=== PATIENT | female | born 1990 | race Caucasian/White ===

== ENCOUNTER 2018-04-14 12:42 | Emergency (ER) | payer SELFPAY ==
[~2018-04-14] VITALS: Ht 165.1 cm; Wt 57.2 kg
[~2018-04-14 12:42] MED LIST: NITR100C62 PO; PHEN100T82 PO
[2018-04-14] MEDS: DEXAMETHASONE 4 MG TABLET PO ONE (14:08)
[2018-04-14] MEDS: IBUPROFEN 600 MG TABLET. PO ONE (14:08)
--- NOTE | 2018-04-14 14:18 | PHYS DOC ---
Past Medical History Past Medical History: Anxiety, Depression, Endometriosis, GERD Past Surgical History: Other Additional Past Surgical Histo: LAPROSCOPY, ADENOIDS, "BILAT URETAL IMPLANT" Additional Information: 0.25 PPD Alcohol Use: None Drug Use: None Adult General Chief Complaint Chief Complaint: GENERALIZED BODY ACHES [facility] HPI Patient is a 28 year old female who presents with has had nausea, vomiting, headache, sinus congestion, cough, bilateral ear pain, back pain for the last 7 days. Patient states 4 days ago she went to urgent care and they told her that she has a upper respiratory viral infection and to take Sudafed and told her to take some MiraLAX for constipation. Patient states that she has MiraLAX at home because she does have chronic constipation but she does not like taking it. Patient states she took 2 doses with the Sudafed and then stopped because she thought that it would make her no staff here. Patient denies coughing up any sputum. Patient states she has chills but does not think that she has been running a fever patient denies any diarrhea. Patient denies any urinary symptoms. Review of Systems Review of Systems Constitutional: Denies fever or chills. Body aches [] Eyes: Denies change in visual acuity, redness, or eye pain [] HENT: Nasal congestion. Denies sore throat [] Respiratory: Cough. Denies shortness of breath [] Cardiovascular: No additional information not addressed in HPI [] GI: Abdominal pain, nausea, vomiting. Denies bloody stools or diarrhea [] : Denies dysuria or hematuria [] Musculoskeletal: Upper back pain. Denies joint pain [] Integument: Denies rash or skin lesions [] Neurologic: Denies headache, focal weakness or sensory changes [] Endocrine: Denies polyuria or polydipsia [] All other systems were reviewed and found to be within normal limits, except as documented in this note. Current Medications Current Medications Current Medications Medications (Trade) Dose Ordered Sig/Ventura Start Time Stop Time Status Last Admin Dose Admin Dexamethasone (Decadron) 8 mg 1X ONCE 04/14/18 13:45 04/14/18 13:51 DC 04/14/18 14:08 8 MG Ibuprofen (Motrin) 600 mg 1X ONCE 04/14/18 13:45 04/14/18 13:51 DC 04/14/18 14:08 600 MG Allergies Allergies Allergies Coded Allergies Type Severity Reaction Last Updated Verified orange (food color) Allergy Intermediate 03/29/16 Yes Physical Exam Physical Exam Constitutional: Well developed, well nourished, no acute distress, non-toxic appearance. [] HENT: Normocephalic, atraumatic, bilateral external ears normal, oropharynx moist, no oral exudates, nose normal. [] Eyes: PERRLA, EOMI, conjunctiva normal, no discharge. [] Neck: Normal range of motion, no tenderness, supple, no stridor. [] Cardiovascular:Heart rate regular rhythm, no murmur [] Lungs & Thorax: Bilateral breath sounds clear to auscultation [] Abdomen: Bowel sounds normal, soft, no tenderness, no masses, no pulsatile masses. [] Skin: Warm, dry, no erythema, no rash. [] Back: slight tenderness in upper backl, no CVA tenderness. [] Extremities: No tenderness, no cyanosis, no clubbing, ROM intact, no edema. [] Neurologic: Alert and oriented X 3, normal motor function, normal sensory function, no focal deficits noted. [] Psychologic: Affect normal, judgement normal, mood normal. [] Current Patient Data Vital Signs Vital Signs Date Time Temp Pulse Resp B/P (MAP) Pulse Ox O2 Delivery O2 Flow Rate FiO2 04/14/18 15:35 76 16 114/57 (76) 100 Room Air 04/14/18 12:44 98.0 98.0 Lab Values Laboratory Tests Test 04/14/18 14:26 04/14/18 14:32 Urine Collection Type Unknown Urine Color Yellow Urine Clarity Clear Urine pH 6.5 Urine Specific [place] 1.020 Urine Protein Negative mg/dL (NEG-TRACE) Urine Glucose (UA) Negative mg/dL (NEG) Urine Ketones (Stick) Trace mg/dL (NEG) Urine Blood Negative (NEG) Urine Nitrite Negative (NEG) Urine Bilirubin Negative (NEG) Urine Urobilinogen Dipstick 1.0 mg/dL (0.2 mg/dL) Urine Leukocyte Esterase Negative (NEG) Urine RBC 1-2 /HPF (0-2) Urine WBC 1-4 /HPF (0-4) Urine Squamous Epithelial Cells Mod /LPF Urine Bacteria Moderate /HPF (0-FEW) Urine Mucus Marked /LPF POC Urine HCG, Qualitative Hcg negative (Negative) Microbiology 04/14/18 Urine Culture - Final, Complete 04/14/18 Urine Culture Result 1 (TANYA) - Final, Complete EKG EKG [] Radiology/Procedures Radiology/Procedures [] Impressions: [facility] [address] [place] [address] IMAGING REPORT Signed PATIENT: YOHAN HEARD ACCOUNT: [id number] : 1990 LOCATION: ER AGE: 28 SEX: F EXAM STATUS: REG ER ORD. PHYSICIAN: PARTH LAUREN APRN REASON: cough PROCEDURE: CHEST PA & LATERAL PA and lateral chest radiograph. History: Cough, congestion. Comparison: None. Findings: Cardiomediastinal silhouette is within normal limits for size. Bilateral lung horn appear clear without evidence of infiltrate, effusion, or pneumothorax. Impression: 1. No acute cardiopulmonary process. Electronically signed by: Hans Monroy MD (04/14/2018 3:05 PM) [place] [id number] DICTATED and SIGNED BY: HANS MONROY MD DATE: 04/14/18 1504 Course & Med Decision Making Course & Med Decision Making Patient is a 28 year old female who presents with has had nausea, vomiting, headache, sinus congestion, cough, bilateral ear pain, back pain for the last 7 days. Patient states 4 days ago she went to urgent care and they told her that she has a upper respiratory viral infection and to take Sudafed and told her to take some MiraLAX for constipation. Patient states that she has MiraLAX at home because she does have chronic constipation but she does not like taking it. Patient states she took 2 doses with the Sudafed and then stopped because she thought that it would make her no staff here. Patient denies coughing up any sputum. Patient states she has chills but does not think that she has been running a fever patient denies any diarrhea. Patient denies any urinary symptoms. Lungs are clear to auscultation. Heart rate is regular and without murmur. Patient states she has body aches and states that she feels like she is getting worse and not getting any better. Patient states she does have some abdominal pain. Patient does not have any abdominal tenderness and abdomen is soft and nontender. Patients throat is pink without exudates. Bilateral tympanic membranes are foggy white but without infection. Patient's skin is pink warm and dry. Patients membranes are moist. Patient is neurologically Intact. Patient is given a dose of dexamethasone and some ibuprofen in the ED. I spoke with the patient about using Flonase nasal spray and to continue using Sudafed until she is feeling better. I did tell the patient that she should take Tylenol or ibuprofen consistently until she is feeling better to help with body aches and/or fever. Chest x-ray shows no acute findings. Urine does not look infected but is contaminated. Patient denies any urinary symptoms. Since patient has had her symptoms for 7 days and is only getting worse I will give her a prescription for azithromycin. Patient should follow-up with her primary care provider. Staff Physician Addendum: I was working in the ER during the course of this patient's visit. I was available for consultation as needed, but I was not directly involved in the care of this patient. [] Dragon Disclaimer Dragon Disclaimer This electronic medical record was generated, in whole or in part, using a voice recognition dictation system. Departure Departure Impression: Primary Impression: Respiratory infection, upper Disposition: 01 HOME, SELF-CARE Condition: STABLE Referrals: KIM JEAN (PCP) Patient Instructions: Upper Respiratory Infection, Adult Additional Instructions: Follow up with your primary care doctor. Take Sudafed, Tylenol or Ibuprofen, and Azithromycin as prescribed. Scripts Azithromycin (AZITHROMYCIN TABLET) 250 Mg Tablet 1 PKG PO UD, #6 TAB Prov: PARTH LAUREN APRN 04/14/18 Problem Qualifiers Primary Impression: Respiratory infection, upper URI type: unspecified viral URI Qualified Codes: J06.9 - Acute upper respiratory infection, unspecified PARTH LAUREN APRN Apr 14, 2018 14:18 DEMETRICE TANNER MD Apr 18, 2018 19:04
[2018-04-14 14:40] LABS: BILIRUBIN,URINE NEGATIVE (NEG); CLARITY,URINE CLEAR; COLOR,URINE YELLOW; NITRITE,URINE NEGATIVE (NEG); PH,URINE 6.5; PROTEIN,URINE NEGATIVE (NEG-TRACE)
[2018-04-14 15:05] LABS: BACTERIA,URINE MODERATE /HPF (0-FEW); SQUAMOUS EPITHELIAL CELL,UR MOD /LPF
--- NOTE | 2018-04-14 15:09 | RAD ---
PA and lateral chest radiograph. History: Cough, congestion. Comparison: None. Findings: Cardiomediastinal silhouette is within normal limits for size. Bilateral lung horn appear clear without evidence of infiltrate, effusion, or pneumothorax. Impression: 1. No acute cardiopulmonary process. Electronically signed by: Hans Bartholomew MD (04/14/2018 3:05 PM) [place] [id number]
[2018-04-14] MEDS ORDERED: AZIT250T6 PO (15:24)
[2018-04-14 15:35] VITALS: BP 114/57
== END 2018-04-14 15:35 | disposition home or self-care (01) ==
LOC: ER 12:42
DX: J06.9 Acute upper respiratory infection, unspecified (principal); R51 Headache; R11.2 Nausea with vomiting, unspecified; H92.03 Otalgia, bilateral; F41.9 Anxiety disorder, unspecified; F32.9 Major depressive disorder, single episode, unspecified; K21.9 Gastro-esophageal reflux disease without esophagitis; F17.200 Nicotine dependence, unspecified, uncomplicated; K59.00 Constipation, unspecified; M54.6 Pain in thoracic spine; Z91.018 Allergy to other foods
CPT/HCPCS: 71046; 81001; 81025; 87086; 99285; J8540

== ENCOUNTER 2018-05-22 13:48 | Emergency (ER) | payer SELFPAY ==
[~2018-05-22] VITALS: Ht 165.1 cm; Wt 59.0 kg
[~2018-05-22 13:48] MED LIST changes: +AZIT250T6 PO
[2018-05-22] MEDS ORDERED: PANTOPRAZOLE IV PUSH 40 MG VIAL. IVP ONE (14:15)
[2018-05-22] MEDS ORDERED: ONDANSETRON PF 4 MG/2 ML VIAL. IV ONE (14:15)
[2018-05-22] MEDS ORDERED: IV NORMAL SALINE 1000ML BAG 1,000 ML IV ONE (14:15)
[2018-05-22 14:34] LABS: BASO # 0.1 x10^3/uL (0.0-0.2); BASO % 1 % (0-3); EOS % 0 % (0-3); HEMATOCRIT 40.1 % (36.0-47.0); HEMOGLOBIN 14.3 g/dL (12.0-15.5); LYMPH # 0.9 x10^3/uL (1.0-4.8); LYMPH % 10 % (24-48); MEAN CORPUSCULAR HEMOGLOBIN 32 pg (25-35); MEAN CORPUSCULAR HGB CONC 36 g/dL (31-37); MEAN CORPUSCULAR VOLUME 90 fL (79-100); MONO # 0.4 x10^3/uL (0.0-1.1); MONO % 4 % (0-9); NEUT # 7.5 x10^3uL (1.8-7.7); NEUT % 85 % (31-73); PLATELET COUNT 204 x10^3/uL (140-400); RED BLOOD COUNT 4.46 x10^6/uL (3.50-5.40); RED CELL DISTRIBUTION WIDTH 12.9 % (11.5-14.5); WHITE BLOOD COUNT 8.8 x10^3/uL (4.0-11.0)
[2018-05-22] MEDS ORDERED: IOHEXOL 300 MG/ML 100ML VIAL. IV ONE (14:45)
[2018-05-22 14:48] LABS: CALCIUM 9.4 mg/dL (8.5-10.1); CREATININE 0.7 mg/dL (0.6-1.0); GFR 101.1; POTASSIUM 3.6 mmol/L (3.5-5.1)
[2018-05-22 14:51] LABS: ALBUMIN 4.4 g/dL (3.4-5.0); ALBUMIN/GLOBULIN RATIO 1.2 (1.0-1.7); TOTAL BILIRUBIN 0.9 mg/dL (0.2-1.0)
[2018-05-22] MEDS ORDERED: CONTRAST GIVEN. MC PRN (15:00)
[2018-05-22 15:17] LABS: INFLUENZA A PATIENT NEGATIVE (NEGATIVE)
[2018-05-22 15:18] LABS: INFLUENZA B PATIENT NEGATIVE (NEGATIVE)
[2018-05-22 15:28] LABS: BILIRUBIN,URINE NEGATIVE (NEG); CLARITY,URINE CLEAR; COLOR,URINE YELLOW; NITRITE,URINE NEGATIVE (NEG); PH,URINE 8.5; PROTEIN,URINE NEGATIVE (NEG-TRACE); UROBILINOGEN,URINE 0.2 mg/dL (0.2 mg/dL)
[2018-05-22 15:36] LABS: BARBITURATES NEG (NEG); BENZODIAZEPINES NEG (NEG); CANNABINOIDS NEG (NEG); COCAINE NEG (NEG); METHADONE NEG (NEG); OPIATES NEG (NEG); PHENCYCLIDINE NEG (NEG)
[2018-05-22 15:38] LABS: BACTERIA,URINE 0 /HPF (0-FEW); RBC,URINE 0 /HPF (0-2); SQUAMOUS EPITHELIAL CELL,UR OCC /LPF
--- NOTE | 2018-05-22 15:41 | RAD ---
CT ABD PELV W/ IV CONTRST ONLY dated 05/22/2018 2:55 PM Indication:. Painvomiting, abd pain [id number]
prior sent. Comparison: 06/04/2011 Technique: Contiguous axial imaging the abdomen and pelvis performed following the intravenous administration of 75 cc Isovue-370. One or more of the following individualized dose reduction techniques were utilized for this examination: 1. Automated exposure control 2. Adjustment of the mA and/or kV according to patient size 3. Use of iterative reconstruction technique Findings: Limited images of lung bases are clear. Heart size within normal limits. No pleural or pericardial effusion. Liver, spleen, pancreas, adrenal glands, gallbladder and kidneys are unremarkable. No hydronephrosis. Unopacified GI tract normal in caliber and contour. No focal bowel wall thickening. No inflammatory stranding in the mesentery. There is a moderate amount of stool throughout the colon. The appendix is not clearly identified. No inflammatory changes in the right lower quadrant. Abdominal aorta normal in caliber. No ascites or lymphadenopathy. Images the pelvis show mildly distended urinary bladder. 2.9 cm right ovarian cyst. Uterus and adnexa otherwise unremarkable. No free fluid or lymphadenopathy. Bone windows show no acute findings. IMPRESSION: 1. No acute abnormality of abdomen or pelvis. 2. Small right ovarian cyst. Electronically signed by: Hans Linares MD (05/22/2018 3:37 PM) [facility] [place]
[2018-05-22 15:43] LABS: AMPHETAMINE/METHAMPHETAMINE NEG (NEG)
[2018-05-22 16:01] VITALS: BP 110/64
[2018-05-22] MEDS ORDERED: ONDA4TAB10 SL (16:07)
[2018-05-22] MEDS ORDERED: DICY20TA3 PO (16:07)
--- NOTE | 2018-05-22 16:07 | PHYS DOC ---
Past Medical History Past Medical History: Anxiety, Depression, Endometriosis, GERD Past Surgical History: Other Additional Past Surgical Histo: LAPROSCOPY, ADENOIDS, "BILAT URETAL IMPLANT" Alcohol Use: None Drug Use: None Adult General Chief Complaint Chief Complaint: NAUSEA/VOMITING/DIARRHA HPI HPI Patient is a 28 year old female with history of endometriosis, anxiety, depression, who presents today with nausea and vomiting as well as mild abdominal pain that began 2 hours prior to coming to the ED. Patient denies any diarrhea. Denies any hematemesis or melena. Review of Systems Review of Systems Constitutional: Denies fever or chills [] Eyes: Denies change in visual acuity, redness, or eye pain [] HENT: Denies nasal congestion or sore throat [] Respiratory: Denies cough or shortness of breath [] Cardiovascular: No additional information not addressed in HPI [] GI: Reports abdominal pain, nausea and vomiting, denies bloody stools or diarrhea [] : Denies dysuria or hematuria [] Musculoskeletal: Denies back pain or joint pain [] Integument: Denies rash or skin lesions [] Neurologic: Denies headache, focal weakness or sensory changes [] All other systems were reviewed and found to be within normal limits, except as documented in this note. Current Medications Current Medications Current Medications Medications (Trade) Dose Ordered Sig/Ventura Start Time Stop Time Status Last Admin Dose Admin Info (CONTRAST GIVEN -- Rx MONITORING) 1 each PRN DAILY PRN 05/22/18 15:00 05/24/18 14:59 Iohexol (Omnipaque 300 Mg/ml) 75 ml 1X ONCE 05/22/18 14:45 05/22/18 14:47 DC 05/22/18 15:02 75 ML Ondansetron HCl (Zofran) 4 mg 1X ONCE 05/22/18 14:15 05/22/18 14:16 DC 05/22/18 14:33 4 MG Pantoprazole Sodium (PROTONIX VIAL for IV PUSH) 40 mg 1X ONCE 05/22/18 14:15 05/22/18 14:16 DC 05/22/18 14:33 40 MG Sodium Chloride 1,000 ml @ 1,000 mls/hr 1X ONCE 05/22/18 14:15 05/22/18 15:14 DC 05/22/18 14:25 1,000 MLS/HR Allergies Allergies Allergies Coded Allergies Type Severity Reaction Last Updated Verified orange (food color) Allergy Intermediate 03/29/16 Yes Physical Exam Physical Exam Constitutional: Well developed, well nourished, no acute distress, non-toxic appearance. [] HENT: Normocephalic, atraumatic, bilateral external ears normal, oropharynx moist, no oral exudates, nose normal. [] Eyes: PERRLA, EOMI, conjunctiva normal, no discharge. [] Neck: Normal range of motion, no tenderness, supple, no stridor. [] Cardiovascular:Heart rate regular rhythm, no murmur [] Lungs & Thorax: Bilateral breath sounds clear to auscultation [] Abdomen: Bowel sounds normal, soft, diffuse tenderness throughout the abdomen, no masses, no pulsatile masses. Patient is actively vomiting. Skin: Warm, dry, no erythema, no rash. [] Back: No tenderness, no CVA tenderness. [] Extremities: No tenderness, no cyanosis, no clubbing, ROM intact, no edema. [] Neurologic: Alert and oriented X 3, normal motor function, normal sensory function, no focal deficits noted. [] Psychologic: Affect normal, judgement normal, mood normal. [] Current Patient Data Vital Signs Vital Signs Date Time Temp Pulse Resp B/P (MAP) Pulse Ox O2 Delivery O2 Flow Rate FiO2 05/22/18 14:10 98.9 85 18 121/67 (85) 100 Room Air 98.9 Lab Values Laboratory Tests Test 05/22/18 14:20 05/22/18 14:30 05/22/18 15:19 White Blood Count 8.8 x10^3/uL (4.0-11.0) Red Blood Count 4.46 x10^6/uL (3.50-5.40) Hemoglobin 14.3 g/dL (12.0-15.5) Hematocrit 40.1 % (36.0-47.0) Mean Corpuscular Volume 90 fL (79-100) Mean Corpuscular Hemoglobin 32 pg (25-35) Mean Corpuscular Hemoglobin Concent 36 g/dL (31-37) Red Cell Distribution Width 12.9 % (11.5-14.5) Platelet Count 204 x10^3/uL (140-400) Neutrophils (%) (Auto) 85 % (31-73) H Lymphocytes (%) (Auto) 10 % (24-48) L Monocytes (%) (Auto) 4 % (0-9) Eosinophils (%) (Auto) 0 % (0-3) Basophils (%) (Auto) 1 % (0-3) Neutrophils # (Auto) 7.5 x10^3uL (1.8-7.7) Lymphocytes # (Auto) 0.9 x10^3/uL (1.0-4.8) L Monocytes # (Auto) 0.4 x10^3/uL (0.0-1.1) Eosinophils # (Auto) 0.0 x10^3/uL (0.0-0.7) Basophils # (Auto) 0.1 x10^3/uL (0.0-0.2) Sodium Level 139 mmol/L (136-145) Potassium Level 3.6 mmol/L (3.5-5.1) Chloride Level 104 mmol/L (98-107) Carbon Dioxide Level 25 mmol/L (21-32) Anion Gap 10 (6-14) Blood Urea Nitrogen 9 mg/dL (7-20) Creatinine 0.7 mg/dL (0.6-1.0) Estimated GFR (Cockcroft-Gault) 101.1 BUN/Creatinine Ratio 13 (6-20) Glucose Level 110 mg/dL (70-99) H Calcium Level 9.4 mg/dL (8.5-10.1) Total Bilirubin 0.9 mg/dL (0.2-1.0) Aspartate Amino Transferase (AST) 21 U/L (15-37) Alanine Aminotransferase (ALT) 24 U/L (14-59) Alkaline Phosphatase 53 U/L (46-116) Total Protein 8.0 g/dL (6.4-8.2) Albumin 4.4 g/dL (3.4-5.0) Albumin/Globulin Ratio 1.2 (1.0-1.7) Lipase 126 U/L (73-393) Ethyl Alcohol Level < 10 mg/dL (0-10) Influenza Type A Antigen Negative (NEGATIVE) Influenza Type B Antigen Negative (NEGATIVE) Urine Collection Type Unknown Urine Color Yellow Urine Clarity Clear Urine pH 8.5 Urine Specific [place] >=1.030 Urine Protein Negative mg/dL (NEG-TRACE) Urine Glucose (UA) Negative mg/dL (NEG) Urine Ketones (Stick) Negative mg/dL (NEG) Urine Blood Negative (NEG) Urine Nitrite Negative (NEG) Urine Bilirubin Negative (NEG) Urine Urobilinogen Dipstick 0.2 mg/dL (0.2 mg/dL) Urine Leukocyte Esterase Negative (NEG) Urine RBC 0 /HPF (0-2) Urine WBC 1-4 /HPF (0-4) Urine Squamous Epithelial Cells Occ /LPF Urine Bacteria 0 /HPF (0-FEW) Urine Opiates Screen Neg (NEG) Urine Methadone Screen Neg (NEG) Urine Barbiturates Neg (NEG) Urine Phencyclidine Screen Neg (NEG) Urine Amphetamine/Methamphetamine Neg (NEG) Urine Benzodiazepines Screen Neg (NEG) Urine Cocaine Screen Neg (NEG) Urine Cannabinoids Screen Neg (NEG) Urine Ethyl Alcohol Neg (NEG) Laboratory Tests 05/22/18 14:20 Laboratory Tests 05/22/18 14:20 EKG EKG [] Radiology/Procedures Radiology/Procedures []PROCEDURE: CT ABD PELV W/ IV CONTRST ONLY CT ABD PELV W/ IV CONTRST ONLY dated 05/22/2018 2:55 PM Indication:. Painvomiting, abd pain [id number]
prior sent. Comparison: 06/04/2011 Technique: Contiguous axial imaging the abdomen and pelvis performed following the intravenous administration of 75 cc Isovue-370. One or more of the following individualized dose reduction techniques were utilized for this examination: 1. Automated exposure control 2. Adjustment of the mA and/or kV according to patient size 3. Use of iterative reconstruction technique Findings: Limited images of lung bases are clear. Heart size within normal limits. No pleural or pericardial effusion. Liver, spleen, pancreas, adrenal glands, gallbladder and kidneys are unremarkable. No hydronephrosis. Unopacified GI tract normal in caliber and contour. No focal bowel wall thickening. No inflammatory stranding in the mesentery. There is a moderate amount of stool throughout the colon. The appendix is not clearly identified. No inflammatory changes in the right lower quadrant. Abdominal aorta normal in caliber. No ascites or lymphadenopathy. Images the pelvis show mildly distended urinary bladder. 2.9 cm right ovarian cyst. Uterus and adnexa otherwise unremarkable. No free fluid or lymphadenopathy. Bone windows show no acute findings. IMPRESSION: 1. No acute abnormality of abdomen or pelvis. 2. Small right ovarian cyst. Electronically signed by: Hans Linares MD (05/22/2018 3:37 PM) [facility] [place] DICTATED and SIGNED BY: HANS LINARES MD DATE: 05/22/18 1534 Course & Med Decision Making Course & Med Decision Making Pertinent Labs and Imaging studies reviewed. (See chart for details) This is a 28-year-old female patient presenting to the ED today with nausea, vomiting, and abdominal pain that began 2 hours prior to coming to the ED. Patient is actively vomiting on arrival to the ED. Urine analysis is negative for infection, CBC CMP lipase with no acute findings. CT of the abdomen and pelvic was negative for any acute findings, noted for right ovarian cyst, requested patient to follow up with an HAND COPER for this. Negative influenza A or B. Discharged with Zofran and dicyclomine. Instructed to push fluids and maintain good hand hygiene. Dragon Disclaimer Dragon Disclaimer This electronic medical record was generated, in whole or in part, using a voice recognition dictation system. Departure Departure Impression: Primary Impression: Nausea and vomiting Disposition: 01 HOME, SELF-CARE Condition: STABLE (you may benefit) Referrals: KIM JEAN (PCP) Follow-up next week Patient Instructions: Abdominal Pain, Nausea and Vomiting, [id number] Additional Instructions: You were evaluated in the emergency room for abdominal pain with nausea and vomiting. Take the prescribed medications as ordered. Maintain good hand hygiene , rest, follow-up with your doctor next week. Scripts Dicyclomine Hcl (DICYCLOMINE HCL) 20 Mg Tablet 1 TAB PO TID, #30 TAB 1 Refill Prov: VENITA DAVID APRN 05/22/18 Ondansetron (ZOFRAN ODT) 4 Mg Tab.rapdis 1 TAB SL Q8HRS, #15 TAB Prov: VENITA DAVID APRN 05/22/18 Problem Qualifiers Primary Impression: Nausea and vomiting Vomiting type: unspecified Vomiting Intractability: non-intractable Qualified Codes: R11.2 - Nausea with vomiting, unspecified VENITA DAVID JERMAIN May 22, 2018 16:07
== END 2018-05-22 16:13 | disposition home or self-care (01) ==
LOC: ER 13:48
DX: R11.2 Nausea with vomiting, unspecified (principal); R10.84 Generalized abdominal pain; F41.9 Anxiety disorder, unspecified; F32.9 Major depressive disorder, single episode, unspecified; K21.9 Gastro-esophageal reflux disease without esophagitis; Z98.82 Breast implant status; Z91.018 Allergy to other foods
CPT/HCPCS: 36415; 74177; 80053; 80307; 81001; 83690; 85025; 87804; 96361; 96374; 96375; 99285; C9113; G0480; J2405; J7030; Q9967

== ENCOUNTER 2018-08-18 01:35 | Emergency (ER) | payer SELFPAY ==
[~2018-08-18] VITALS: Ht 165.1 cm; Wt 55.3 kg
[~2018-08-18 01:35] MED LIST changes: +DICY20TA3 PO; +ONDA4TAB10 SL
[2018-08-18 01:38] VITALS: BP 124/61
[2018-08-18 02:32] LABS: BILIRUBIN,URINE NEGATIVE (NEG); CLARITY,URINE CLEAR; COLOR,URINE YELLOW; NITRITE,URINE NEGATIVE (NEG); PH,URINE 6.5; PROTEIN,URINE 30 mg/dL (NEG-TRACE)
[2018-08-18 02:48] LABS: BACTERIA,URINE MODERATE /HPF (0-FEW); RBC,URINE >40 /HPF (0-2); SQUAMOUS EPITHELIAL CELL,UR MOD /LPF
[2018-08-18] MEDS ORDERED: VALA500T5 PO (03:16)
--- NOTE | 2018-08-18 03:16 | PHYS DOC ---
Past Medical History Past Medical History: STD Past Surgical History: Other Additional Past Surgical Histo: URINARY REPLANT AN Alcohol Use: None Drug Use: None Adult General Chief Complaint Chief Complaint: SEXUALLY TRANSMITTED DISEASE HPI HPI Patient is a 28-year-old female who presents with complaint of vaginal discomfort for the last 24 hours. Patient states that symptoms are just like when she is getting ready to have a herpes outbreak. Patient states that she does not have a primary care doctor and does not have a prescription for herpes. Patient states that she has had no nausea or vomiting. She denies any abdominal pain or fever. Review of Systems Review of Systems Constitutional: Denies fever or chills [] Respiratory: Denies cough or shortness of breath [] Cardiovascular: No additional information not addressed in HPI [] GI: Denies abdominal pain, nausea, vomiting, bloody stools or diarrhea [] : Complains of vaginal pain [] Integument: Denies rash or skin lesions [] Allergies Allergies Allergies Coded Allergies Type Severity Reaction Last Updated Verified orange (food color) Allergy Intermediate 03/29/16 Yes Physical Exam Physical Exam Constitutional: Well developed, well nourished, no acute distress, non-toxic appearance. [] Neck: Normal range of motion, no tenderness, supple, no stridor. [] Cardiovascular:Heart rate regular rhythm, no murmur [] Lungs & Thorax: Bilateral breath sounds clear to auscultation [] Abdomen: Bowel sounds normal, soft, no tenderness. [] Current Patient Data Vital Signs Vital Signs Date Time Temp Pulse Resp B/P (MAP) Pulse Ox O2 Delivery O2 Flow Rate FiO2 08/18/18 01:38 98.1 87 20 124/61 (82) 99 Room Air 98.1 Lab Values Laboratory Tests Test 08/18/18 02:19 08/18/18 02:27 Urine Collection Type Unknown Urine Color Yellow Urine Clarity Clear Urine pH 6.5 Urine Specific [place] >=1.030 Urine Protein 30 mg/dL (NEG-TRACE) Urine Glucose (UA) Negative mg/dL (NEG) Urine Ketones (Stick) Negative mg/dL (NEG) Urine Blood Large (NEG) Urine Nitrite Negative (NEG) Urine Bilirubin Negative (NEG) Urine Urobilinogen Dipstick 1.0 mg/dL (0.2 mg/dL) Urine Leukocyte Esterase Negative (NEG) Urine RBC >40 /HPF (0-2) Urine WBC 1-4 /HPF (0-4) Urine Squamous Epithelial Cells Mod /LPF Urine Bacteria Moderate /HPF (0-FEW) Urine Mucus Mod /LPF POC Urine HCG, Qualitative Hcg negative (Negative) EKG EKG [] Radiology/Procedures Radiology/Procedures [] Course & Med Decision Making Course & Med Decision Making Pertinent Labs and Imaging studies reviewed. (See chart for details) [] Dragon Disclaimer Dragon Disclaimer This electronic medical record was generated, in whole or in part, using a voice recognition dictation system. 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 DO 08/18/18 MELVIN MARES Jr. DO Aug 18, 2018 03:16
== END 2018-08-18 03:30 | disposition home or self-care (01) ==
LOC: ER 01:35
DX: A60.04 Herpesviral vulvovaginitis (principal); Z88.8 Allergy status to other drugs, medicaments and biological substances
CPT/HCPCS: 81001; 81025; 87086; 99283

== ENCOUNTER 2019-06-25 01:44 | Emergency (ER) | payer SELFPAY ==
[~2019-06-25] VITALS: Ht 162.6 cm; Wt 57.6 kg
[~2019-06-25 01:44] MED LIST changes: +VALA500T5 PO
[2019-06-25 01:55] VITALS: BP 131/78
[2019-06-25] MEDS ORDERED: FLUORESCEIN OPHTH TEST STRIP. OD ONE (02:30)
[2019-06-25] MEDS ORDERED: TETRACAINE 0.5% OPHTH SOLUTION 4ML BOTTLE. OD ONE (02:30)
[2019-06-25] MEDS ORDERED: HYDR-2759 PO (02:42)
[2019-06-25] MEDS ORDERED: SULF5DRO EACHEYE (02:42)
--- NOTE | 2019-06-25 03:00 | PHYS DOC ---
Past Medical History Past Medical History: Endometriosis Past Surgical History: No Surgical History Additional Past Surgical Histo: URINARY REPLANT AN INFANT Alcohol Use: Occasionally Drug Use: Marijuana Adult General Chief Complaint Chief Complaint: EYE PROBLEMS HPI HPI Patient is a 29 year old female presents with right eye pain and redness and tearing with foreign body sensation. Denies known foreign body exposure. First began several hours prior to ED arrival. Patient does not wear corrective lenses or glasses. Reports matting in both eyes. No other symptoms or complaints.[] Review of Systems Review of Systems Review symptoms as per history of present illness. All other review symptoms are negative] All other systems were reviewed and found to be within normal limits, except as documented in this note. Current Medications Current Medications Current Medications Medications (Trade) Dose Ordered Sig/Ventura Start Time Stop Time Status Last Admin Dose Admin Fluorescein Sodium (Ful-Alysia) 1 strip 1X ONCE 06/25/19 02:30 06/25/19 02:31 DC 06/25/19 02:30 1 STRIP Tetracaine HCl (Tetracaine) 3 drop 1X ONCE 06/25/19 02:30 06/25/19 02:31 DC 06/25/19 02:30 3 DROP Allergies Allergies Allergies Coded Allergies Type Severity Reaction Last Updated Verified orange (food color) Allergy Intermediate 03/29/16 Yes Physical Exam Physical Exam Constitutional: Well developed, well nourished, no acute distress, non-toxic appearance. [] HENT: Normocephalic, atraumatic, bilateral external ears normal, oropharynx moist, no oral exudates, nose normal. [] Eyes: PERRL, EOMI, right eye, conjunctiva injected, light matting eyelashes, no eyelid cellulitis, no foreign body identified or dye uptake recent staining. OD, 20/20, 20/20, both eyes 20/20 [] Neurologic: Alert and oriented X 3, normal motor function, normal sensory function, no focal deficits noted. [] Psychologic: Affect normal, judgement normal, mood normal. [] Current Patient Data Vital Signs Vital Signs Date Time Temp Pulse Resp B/P (MAP) Pulse Ox O2 Delivery O2 Flow Rate FiO2 06/25/19 01:55 97.5 88 16 131/78 (95) 98 Room Air 97.5 EKG EKG [] Radiology/Procedures Radiology/Procedures [] Course & Med Decision Making Course & Med Decision Making Pertinent Labs and Imaging studies reviewed. (See chart for details) Eye [Irrigated, swept, eyelids everted, no foreign body appreciated identified patient didn't affect. Will treat for conjunctivitis with instructions to follow-up with your doctor for reevaluation] Yana Disclaimer Dragon Disclaimer This electronic medical record was generated, in whole or in part, using a voice recognition dictation system. Departure Departure Impression: Primary Impression: Conjunctivitis Additional Impression: Acute right eye pain Disposition: HOME, SELF-CARE Condition: GOOD Patient Instructions: Conjunctivitis (Viral and Bacterial), Eye - Foreign Body, [id number] Additional Instructions: You were evaluated in the emergency department for right eye pain with body sensation. No foreign body or corneal abrasion was identified on exam. Please take ibuprofen for pain and hydrocodone as needed for additional relief and apply eyedrops to both eyes. Follow-up with local doctor on Thursday. Scripts Sulfacetamide Sodium (BLEPH-10) 5 Ml Drops 2 DROP EACHEYE QID, #5 ML 0 Refills Prov: ALISTAIR BLAKE DO 06/25/19 Hydrocodone/Acetaminophen (Hydrocodone-Acetamin 5-325 mg) 1 Each Tablet 1 EACH PO Q6HRS, #10 TAB Prov: ALISTAIR BLAKE DO 06/25/19 Problem Qualifiers ALISTAIR BLAKE DO Jun 25, 2019 03:00
== END 2019-06-25 02:50 | disposition home or self-care (01) ==
LOC: ER 01:44
DX: H10.9 Unspecified conjunctivitis (principal); H57.11 Ocular pain, right eye; N80.9 Endometriosis, unspecified; F12.90 Cannabis use, unspecified, uncomplicated; Z98.890 Other specified postprocedural states; Z91.018 Allergy to other foods
CPT/HCPCS: 99283

== ENCOUNTER 2019-07-05 12:33 | Emergency (ER) | payer SELFPAY ==
[~2019-07-05] VITALS: Ht 162.6 cm; Wt 59.0 kg
[~2019-07-05 12:33] MED LIST changes: +HYDR-2759 PO; +SULF5DRO EACHEYE
[2019-07-05 12:50] VITALS: BP 134/77
--- NOTE | 2019-07-05 16:06 | PHYS DOC ---
Past Medical History Past Medical History: Endometriosis Past Surgical History: No Surgical History Additional Past Surgical Histo: URINARY REPLANT AN Alcohol Use: Occasionally Drug Use: Marijuana Adult General Chief Complaint Chief Complaint: FLU SYMPTOM HPI HPI Patient is a 29 year old female who presents to the emergency department with complaints of a productive cough with clear sputum, body aches, tactile fever, and fatigue for the last 4 days. Patient denies any known exposure to influenza. She denies any nausea, vomiting, diarrhea, abdominal pain, sore throat, wheezing, or shortness of breath. She currently rates her pain as 7 out of 10 on the pain scale, she denies any alleviating factors. All other ROS is neg unless otherwise noted in HPI. Review of Systems Review of Systems See Above Allergies Allergies Allergies Coded Allergies Type Severity Reaction Last Updated Verified orange (food color) Allergy Intermediate 03/29/16 Yes Physical Exam Physical Exam See Above Constitutional: Well developed, well nourished, no acute distress, non-toxic appearance. [] HENT: Normocephalic, atraumatic, bilateral external ears normal, bilateral TMs normal, oropharynx moist, no oral exudates, nose normal. [] Eyes: PERRLA, EOMI, conjunctiva normal, no discharge. [] Neck: Normal range of motion, no stridor. [] Cardiovascular:Heart rate regular rhythm, no murmur [] Lungs & Thorax: Bilateral breath sounds clear to auscultation [] Skin: Warm, dry, no erythema, no rash. [] Back: No tenderness Extremities: No cyanosis, no clubbing, ROM intact Neurologic: Alert and oriented X 3, no focal deficits noted. [] Psychologic: Affect normal, judgement normal, mood normal. [] Current Patient Data Vital Signs Vital Signs Date Time Temp Pulse Resp B/P (MAP) Pulse Ox O2 Delivery O2 Flow Rate FiO2 07/05/19 12:50 98.2 65 16 134/77 (96) 99 Room Air 98.2 EKG EKG [] Radiology/Procedures Radiology/Procedures [] Course & Med Decision Making Course & Med Decision Making Pertinent Labs and Imaging studies reviewed. (See chart for details) dx: medical screening exam A medical screening exam was performed, patient was found to have no emergent medical condition. The plan of care would've included education about influenza. However, the patient eloped after talking with registration. [] [] Dragon Disclaimer Dragon Disclaimer This electronic medical record was generated, in whole or in part, using a voice recognition dictation system. Departure Departure Impression: Primary Impression: Encounter for medical screening examination Disposition: HOME, SELF-CARE Condition: STABLE Referrals: KIM JEAN (PCP) Additional Instructions: Patient eloped after speaking with registration CATHERINE JACOBO APRN Jul 05, 2019 16:06
== END 2019-07-05 16:45 | disposition home or self-care (01) ==
LOC: ER 12:33
DX: R09.3 Abnormal sputum (principal); R53.83 Other fatigue; R05 Cough; R50.9 Fever, unspecified
CPT/HCPCS: 99281-25

== ENCOUNTER 2019-08-06 01:17 | Emergency (ER) | payer SELFPAY ==
[2019-08-06 01:25] VITALS: BP 121/64
--- NOTE | 2019-08-06 01:38 | PHYS DOC ---
Past Medical History Past Medical History: Endometriosis Past Surgical History: No Surgical History Additional Past Surgical Histo: URINARY REPLANT AN INFANT Alcohol Use: Occasionally Drug Use: Marijuana Adult General Chief Complaint Chief Complaint: VAGINAL PROBLEM HPI HPI Patient is a 29 year old male patient with history of endometritis and genital herpes who presents with complaining of genital herpes and needs for prescriptio n for medication. Patient states she has had genital herpes for 3 years and do not of acyclovir and for the last 2 days has painful lesion of genital area and was prescription for medication. Patient denies , heterosexually, nausea and vomiting, fever and chills, abdominal pain, vaginal bleeding, urinary symptom. Patient complaining of chronic vaginal discharge for years. Review of Systems Review of Systems Constitutional: Denies fever or chills [] Eyes: Denies change in visual acuity, redness, or eye pain [] HENT: Denies nasal congestion or sore throat [] Respiratory: Denies cough or shortness of breath [] Cardiovascular: No additional information not addressed in HPI [] GI: Denies abdominal pain, nausea, vomiting, bloody stools or diarrhea [] : Denies dysuria or hematuria [] Musculoskeletal: Denies back pain or joint pain [] Integument: Denies rash or skin lesions [] Neurologic: Denies headache, focal weakness or sensory changes [] Endocrine: Denies polyuria or polydipsia [] All other systems were reviewed and found to be within normal limits, except as documented in this note. Allergies Allergies Allergies Coded Allergies Type Severity Reaction Last Updated Verified orange (food color) Allergy Intermediate 03/29/16 Yes Physical Exam Physical Exam Constitutional: Well developed, well nourished, mild distress, non-toxic appearance. [] HENT: Normocephalic, atraumatic. Eyes: PERRLA, EOMI, conjunctiva normal, no discharge. [] Neck: Normal range of motion, no tenderness, supple, no stridor. [] Cardiovascular:Heart rate regular rhythm, no murmur [] Lungs & Thorax: Bilateral breath sounds clear to auscultation [] Abdomen: Bowel sounds normal, soft, no tenderness, no masses, no pulsatile masses. External vaginal inspection with present of med spa manager showed poor hygiene with mild erythema without obvious ulcer in genital area. Skin: Warm, dry, no erythema, no rash. [] Back: No tenderness, no CVA tenderness. [] Extremities: No tenderness, no cyanosis, no clubbing, ROM intact, no edema. [] Neurologic: Alert and oriented X 3, no focal deficits noted. [] Psychologic: Affect normal, judgement normal, mood normal. [] Current Patient Data Vital Signs Vital Signs Date Time Temp Pulse Resp B/P (MAP) Pulse Ox O2 Delivery O2 Flow Rate FiO2 08/06/19 01:25 98.6 87 20 121/64 (83) 97 Room Air 98.6 EKG EKG [] Radiology/Procedures Radiology/Procedures [] Course & Med Decision Making Course & Med Decision Making Evaluation of patient in ER showed 29-year-old female patient presented to ER. Prescription of acyclovir for conjunctival herpes. Patient had stable vital signs and didn't want to have pain medication in ER. Prescription for acyclovir was given and patient was advised to follow up with her primary care physician for long-term treatment of acyclovir. Dragon Disclaimer Dragon Disclaimer This electronic medical record was generated, in whole or in part, using a voice recognition dictation system. Departure Departure Impression: Primary Impression: Recurrent genital herpes simplex Disposition: HOME, SELF-CARE (at 0 159) Condition: STABLE Referrals: KIM JEAN (PCP) Patient Instructions: Genital Herpes Additional Instructions: Drink plenty of liquids Follow-up with your primary care physician in 2-3 days Return to ER if not getting better Was your genital area several times a day Thank you for visiting [facility]. We appreciate you trusting us with your care. If any additional problems come up don't hesitate to return to visit us. Please follow up with your primary care provider so they can plan additional care if needed and know about the problem that you had. If symptoms worsen come back to the Emergency Department. Any concerning symptoms that start such as chest pain, shortness of air, weakness or numbness on one side of the body, running high fevers or any other concerning symptoms return to the ER. Scripts Acyclovir (ACYCLOVIR) 200 Mg Capsule 1 CAP PO 5XDAY, #25 CAP Prov: SHEELA OLIVER MD 08/06/19 SHEELA OLIVER MD Aug 06, 2019 01:38
[2019-08-06] MEDS ORDERED: ACYC200C PO (02:02)
== END 2019-08-06 02:14 | disposition home or self-care (01) ==
LOC: ER 01:17
DX: B00.9 Herpesviral infection, unspecified (principal); Z91.018 Allergy to other foods
CPT/HCPCS: 99283

== ENCOUNTER 2019-08-25 03:50 | Emergency (ER) | payer SELFPAY ==
[~2019-08-25] VITALS: Ht 162.6 cm; Wt 59.1 kg
[~2019-08-25 03:50] MED LIST changes: +ACYC200C PO
--- NOTE | 2019-08-25 04:09 | PHYS DOC ---
Past Medical History Past Medical History: Asthma, Endometriosis, Other Additional Past Medical Histor: VAGINAL HERPES Past Surgical History: No Surgical History Additional Past Surgical Histo: URINARY REPLANT AN , LAPAROSCOPY Smoking Status: Current Every Day Smoker Alcohol Use: Rarely Drug Use: Marijuana Adult General Chief Complaint Chief Complaint: CHEST PAIN HPI HPI 29-year-old female presents to the emergency Department complaints of chest pain, nausea, vomiting. Patient started around 6 PM today. She describes achy sensation center aspect of her chest with radiation to her back. She describes a cough with mucus production. Last Mr. One day ago. Nothing makes her symptoms worse, nothing makes her symptoms better. Patient has underlying history of anxiety as well as OCD. Mother is at bedside. No past medical history regarding CAD or family history of CAD. Patient is on no control pills. Review of Systems Review of Systems Constitutional: Denies fever or chills [] Eyes: Denies change in visual acuity, redness, or eye pain [] HENT: Denies nasal congestion or sore throat [] Respiratory: Denies cough or shortness of breath [] Cardiovascular: No additional information not addressed in HPI [] GI: Denies abdominal pain, nausea, vomiting, bloody stools or diarrhea [] : Denies dysuria or hematuria [] Musculoskeletal: Denies back pain or joint pain [] Integument: Denies rash or skin lesions [] Neurologic: Denies headache, focal weakness or sensory changes [] Endocrine: Denies polyuria or polydipsia [] All other systems were reviewed and found to be within normal limits, except as documented in this note. Current Medications Current Medications Current Medications Medications (Trade) Dose Ordered Sig/Ventura Start Time Stop Time Status Last Admin Dose Admin Aspirin (Children'S Aspirin) 324 mg 1X ONCE 08/25/19 04:15 08/25/19 04:16 DC 08/25/19 04:20 324 MG Info (CONTRAST GIVEN -- Rx MONITORING) 1 each PRN DAILY PRN 08/25/19 05:45 08/27/19 05:44 Iohexol (Omnipaque 350 Mg/ml) 90 ml 1X ONCE 08/25/19 05:45 08/25/19 05:46 DC Ketorolac Tromethamine (Toradol 30mg Vial) 30 mg 1X ONCE 08/25/19 04:15 08/25/19 04:16 DC 08/25/19 04:20 30 MG Lorazepam (Ativan Inj) 1 mg 1X ONCE 08/25/19 05:00 08/25/19 05:01 DC 08/25/19 05:00 1 MG Ondansetron HCl (Zofran) 4 mg 1X ONCE 08/25/19 04:15 08/25/19 04:16 DC 08/25/19 04:19 4 MG Sodium Chloride 1,000 ml @ 1,000 mls/hr 1X ONCE 08/25/19 04:15 08/25/19 05:14 DC 08/25/19 04:20 1,000 MLS/HR Allergies Allergies Allergies Coded Allergies Type Severity Reaction Last Updated Verified orange (food color) Allergy Intermediate 03/29/16 Yes Physical Exam Physical Exam Constitutional: Well developed, well nourished, no acute distress, non-toxic appearance. [] HENT: Normocephalic, atraumatic, bilateral external ears normal, oropharynx moist, no oral exudates, nose normal. [] Eyes: PERRLA, EOMI, conjunctiva normal, no discharge. [] Neck: Normal range of motion, no tenderness, supple, no stridor. [] Cardiovascular:Heart rate regular rhythm, no murmur [] Lungs & Thorax: Bilateral breath sounds clear to auscultation [] Abdomen: Bowel sounds normal, soft, no tenderness, no masses, no pulsatile masses. [] Skin: Warm, dry, no erythema, no rash. [] Back: No tenderness, no CVA tenderness. [] Extremities: No tenderness, no cyanosis, no clubbing, ROM intact, no edema. [] Neurologic: Alert and oriented X 3, normal motor function, normal sensory function, no focal deficits noted. [] Psychologic: Affect normal, judgement normal, mood normal. [] Current Patient Data Vital Signs Vital Signs Date Time Temp Pulse Resp B/P (MAP) Pulse Ox O2 Delivery O2 Flow Rate FiO2 08/25/19 04:10 98.3 109 19 113/58 (76) 98 Room Air 98.3 Lab Values Laboratory Tests Test 08/25/19 04:10 08/25/19 05:46 White Blood Count 6.4 x10^3/uL (4.0-11.0) Red Blood Count 4.56 x10^6/uL (3.50-5.40) Hemoglobin 13.9 g/dL (12.0-15.5) Hematocrit 41.4 % (36.0-47.0) Mean Corpuscular Volume 91 fL (79-100) Mean Corpuscular Hemoglobin 31 pg (25-35) Mean Corpuscular Hemoglobin Concent 34 g/dL (31-37) Red Cell Distribution Width 13.3 % (11.5-14.5) Platelet Count 153 x10^3/uL (140-400) Neutrophils (%) (Auto) 85 % (31-73) H Lymphocytes (%) (Auto) 5 % (24-48) L Monocytes (%) (Auto) 8 % (0-9) Eosinophils (%) (Auto) 1 % (0-3) Basophils (%) (Auto) 1 % (0-3) Neutrophils # (Auto) 5.4 x10^3/uL (1.8-7.7) Lymphocytes # (Auto) 0.3 x10^3/uL (1.0-4.8) L Monocytes # (Auto) 0.5 x10^3/uL (0.0-1.1) Eosinophils # (Auto) 0.1 x10^3/uL (0.0-0.7) Basophils # (Auto) 0.0 x10^3/uL (0.0-0.2) Segmented Neutrophils % 90 % (35-66) H Band Neutrophils % 1 % (0-9) Lymphocytes % 5 % (24-48) L Monocytes % 4 % (0-10) Platelet Estimate Adequate (ADEQUATE) Giant Platelets Occ D-Dimer (Jamia) 0.42 ug/mlFEU (0.00-0.50) Sodium Level 141 mmol/L (136-145) Potassium Level 3.6 mmol/L (3.5-5.1) Chloride Level 104 mmol/L (98-107) Carbon Dioxide Level 30 mmol/L (21-32) Anion Gap 7 (6-14) Blood Urea Nitrogen 10 mg/dL (7-20) Creatinine 0.8 mg/dL (0.6-1.0) Estimated GFR (Cockcroft-Gault) 86.0 BUN/Creatinine Ratio 13 (6-20) Glucose Level 109 mg/dL (70-99) H Calcium Level 9.5 mg/dL (8.5-10.1) Magnesium Level 1.8 mg/dL (1.8-2.4) Total Bilirubin 0.5 mg/dL (0.2-1.0) Aspartate Amino Transferase (AST) 23 U/L (15-37) Alanine Aminotransferase (ALT) 17 U/L (14-59) Alkaline Phosphatase 47 U/L (46-116) Troponin I Quantitative < 0.017 ng/mL (0.000-0.055) Total Protein 7.7 g/dL (6.4-8.2) Albumin 4.5 g/dL (3.4-5.0) Albumin/Globulin Ratio 1.4 (1.0-1.7) Lipase 178 U/L (73-393) POC Urine HCG, Qualitative Hcg negative (Negative) Laboratory Tests 08/25/19 04:10 Laboratory Tests 08/25/19 04:10 EKG EKG EKG interpretation time 0 357, sinus tachycardia, no STEMI, normal axis, heart rate 103[] Radiology/Procedures Radiology/Procedures [facility] [address] [place] [address] IMAGING REPORT Signed PATIENT: YOHAN HEARD PACCOUNT: [id number] : 1990 LOCATION: ER AGE: 29 SEX: F EXAM STATUS: REG ER ORD. PHYSICIAN: JUAN LORENZ MD REASON: chest pain PROCEDURE: PORTABLE CHEST 1V PORTABLE CHEST 1V Clinical History: Technique: AP view of the chest was obtained at 08/25/2019 4:05 AM. Comparison: April 14, 2018. Findings: The cardiomediastinal silhouette is normal. The pulmonary vasculature is normal. The lungs and pleural margins are clear. Impression: No evidence of an acute cardiopulmonary process. Electronically signed by: Abigail Alex III, MD (08/25/2019 4:29 AM) [id number] DICTATED and SIGNED BY: ABIGAIL ALEX III, MD DATE: 08/25/19 0429 [] Course & Med Decision Making Course & Med Decision Making Pertinent Labs and Imaging studies reviewed. (See chart for details) []29-year-old female presents to the emergency Department complaints of chest pain, nausea, vomiting. Patient started around 6 PM today. She describes achy sensation center aspect of her chest with radiation to her back. She describes a cough with mucus production. Last Mr. One day ago. Nothing makes her symptoms worse, nothing makes her symptoms better. Patient has underlying history of anxiety as well as OCD. Mother is at bedside. No past medical history regarding CAD or family history of CAD. Patient is on no control pills. Labs/Imaging reviewed Trop negative, Ddimer 0.42 - CT chest to rule out PE Ativan 1mg/Toradol 30mg IV Discussed findings with patient/family If negative CT chest plan dc home Recommend follow up with PCP as needed Return precautions discussed with family at bedside Dragon Disclaimer Dragon Disclaimer This electronic medical record was generated, in whole or in part, using a voice recognition dictation system. Departure Departure Impression: Primary Impression: Chest pain Additional Impression: Anxiety Disposition: 01 HOME, SELF-CARE Condition: IMPROVED Referrals: KIM JEAN (PCP) Patient Instructions: Anxiety and Panic Attacks, [id number], Chest Pain (Nonspecific) Additional Instructions: Recommend follow up with PCP 3 - 5 days Return to the ER with worsening symptoms, intractable pain, fever, altered mental status Tylenol/Motrin as needed for pain Chest xray/CT reviewed without acute findings Heart enzymes negative Ativan given in ER 1mg and Toradol 30mg IV for pain control Problem Qualifiers Primary Impression: Chest pain Chest pain type: unspecified Qualified Codes: R07.9 - Chest pain, unspecified JUAN LORENZ MD Aug 25, 2019 04:09
[2019-08-25] MEDS ORDERED: ONDANSETRON PF 4 MG/2 ML VIAL. IVP ONE (04:15)
[2019-08-25] MEDS ORDERED: KETOROLAC 30 MG/ML VIAL. IVP ONE (04:15)
[2019-08-25] MEDS ORDERED: IV NORMAL SALINE 1000ML BAG 1,000 ML IV ONE (04:15)
[2019-08-25] MEDS ORDERED: ASPIRIN CHEWABLE 81 MG TABLET. PO ONE (04:15)
[2019-08-25 04:18] LABS: BASO % 1 % (0-3); EOS # 0.1 x10^3/uL (0.0-0.7); EOS % 1 % (0-3); HEMATOCRIT 41.4 % (36.0-47.0); HEMOGLOBIN 13.9 g/dL (12.0-15.5); LYMPH # 0.3 x10^3/uL (1.0-4.8); LYMPH % 5 % (24-48); MEAN CORPUSCULAR HEMOGLOBIN 31 pg (25-35); MEAN CORPUSCULAR HGB CONC 34 g/dL (31-37); MEAN CORPUSCULAR VOLUME 91 fL (79-100); MONO # 0.5 x10^3/uL (0.0-1.1); MONO % 8 % (0-9); NEUT # 5.4 x10^3/uL (1.8-7.7); NEUT % 85 % (31-73); PLATELET COUNT 153 x10^3/uL (140-400); RED BLOOD COUNT 4.56 x10^6/uL (3.50-5.40); RED CELL DISTRIBUTION WIDTH 13.3 % (11.5-14.5); WHITE BLOOD COUNT 6.4 x10^3/uL (4.0-11.0)
[2019-08-25 04:29] LABS: CALCIUM 9.5 mg/dL (8.5-10.1); CREATININE 0.8 mg/dL (0.6-1.0); POTASSIUM 3.6 mmol/L (3.5-5.1)
--- NOTE | 2019-08-25 04:32 | RAD ---
PORTABLE CHEST 1V Clinical History: Technique: AP view of the chest was obtained at 08/25/2019 4:05 AM. Comparison: April 14, 2018. Findings: The cardiomediastinal silhouette is normal. The pulmonary vasculature is normal. The lungs and pleural margins are clear. Impression: No evidence of an acute cardiopulmonary process. Electronically signed by: George Martínez III, MD (08/25/2019 4:29 AM) [id number]
[2019-08-25 04:34] LABS: ALBUMIN 4.5 g/dL (3.4-5.0); ALBUMIN/GLOBULIN RATIO 1.4 (1.0-1.7); MAGNESIUM 1.8 mg/dL (1.8-2.4); TOTAL BILIRUBIN 0.5 mg/dL (0.2-1.0); TOTAL PROTEIN 7.7 g/dL (6.4-8.2)
[2019-08-25 04:38] LABS: % BANDS 1 % (0-9); % LYMPHS 5 % (24-48); % MONOS 4 % (0-10); % SEGS 90 % (35-66); PLT ESTIMATE ADEQUATE (ADEQUATE)
--- NOTE | 2019-08-25 04:48 | EKG ---
[facility] [address] [place] [address] Test Date: 2019-08-25 Test Time: 03:57:35 Pat Name: YOHAN HEARD Department: Room: Gender: F [employer] Work[employer]: : 1990 Requested By: JUAN LORENZ Order Number: [id number] Reading MD: Measurements Intervals [place] Rate: 107 P: 38 TN: 126 QRS: 62 QRSD: 102 T: 66 QT: 312 QTc: 422 Interpretive Statements SINUS TACHYCARDIA OTHERWISE NORMAL ECG RI6.01 No previous ECG available for comparison
[2019-08-25] MEDS ORDERED: CONTRAST GIVEN. MC PRN (05:45)
[2019-08-25] MEDS ORDERED: IOHEXOL 350 MG/ML 100 ML VIAL. IV ONE (05:45)
--- NOTE | 2019-08-25 06:26 | RAD ---
CTA Chest with contrast: Clinical History: Elevated d-dimer chest pain and tachycardia. Axial helical images of the chest were obtained after the administration of 90 cc of IV Omni 350 and timed appropriately for a pulmonary arterial study. Conventional axial reconstruction was performed in addition to coronal, sagittal and bilateral oblique MIP (maximum intensity projection). This study was ordered to detect possible pulmonary embolism. There are no filling defects to suggest pulmonary embolism. The lungs and pleural margins are clear. There is no mediastinal or hilar lymphadenopathy. The thoracic aorta appears normal. Impression: 1. No evidence of pulmonary embolism. 2. No significant findings. PQRS Compliance Statement: One or more of the following individualized dose reduction techniques were utilized for this examination: 1. Automated exposure control 2. Adjustment of the mA and/or kV according to patient size 3. Use of iterative reconstruction technique Electronically signed by: George Martínez III, MD (08/25/2019 6:23 AM) [id number]
[2019-08-25 06:34] LABS: BACTERIA,URINE 0 /HPF (0-FEW); BILIRUBIN,URINE NEGATIVE (NEG); CLARITY,URINE CLOUDY; COLOR,URINE YELLOW; NITRITE,URINE NEGATIVE (NEG); PH,URINE 8.5; PROTEIN,URINE 30 mg/dL (NEG-TRACE); RBC,URINE OCC /HPF (0-2); WBC,URINE 0 /HPF (0-4)
[2019-08-25 06:35] LABS: AMORPHOUS SEDIMENT,UR PRESENT /HPF; SQUAMOUS EPITHELIAL CELL,UR MOD /LPF
[2019-08-25 06:40] VITALS: BP 99/63
== END 2019-08-25 06:39 | disposition home or self-care (01) ==
LOC: ER 03:50
DX: R07.89 Other chest pain (principal); F41.9 Anxiety disorder, unspecified; R11.2 Nausea with vomiting, unspecified; R05 Cough; J45.909 Unspecified asthma, uncomplicated; F12.90 Cannabis use, unspecified, uncomplicated; N80.9 Endometriosis, unspecified; F17.200 Nicotine dependence, unspecified, uncomplicated; Z98.890 Other specified postprocedural states; Z79.82 Long term (current) use of aspirin; Z91.018 Allergy to other foods
CPT/HCPCS: 36415; 71045; 71275; 80053; 81001; 81025; 83690; 83735; 84484; 85007; 85025; 85379; 93005; 96361; 96374; 96375; 99285; J1885; J2060; J2405; J7030; Q9967